=== PATIENT | female | born 1985 | race Caucasian/White ===

== ENCOUNTER 2021-06-17 00:03 | Emergency (ER) | payer SELFPAY ==
[2021-06-17] MEDS ORDERED: Diphtheria,Pertussis(Acell),Tetanus Vaccine 0.5 ML Syringe IM ONE (00:10)
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
[2021-06-17] MEDS: Bacitracin Oint 1 GM U/D Packet ONE ×2 (00:44→00:45)
[2021-06-17] MEDS ORDERED: Bacitracin Oint 1 GM U/D Packet TOP ONE (00:44)
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
[2021-06-17] MEDS ORDERED: Bacitracin Oint 28.35 GM Tube TOP SCH (06:00)
== END 2021-06-17 01:15 | disposition home or self-care (01) ==
LOC: MW.ED 00:03
DX: S80.212A Abrasion, left knee, initial encounter (principal); S90.811A Abrasion, right foot, initial encounter; Z23 Encounter for immunization; Z88.0 Allergy status to penicillin; V86.59XA Driver of other special all-terrain or other off-road motor vehicle injured in nontraffic accident, initial encounter
CPT/HCPCS: 73590-26-LT; 73590-LT; 73630-26-LT; 73630-LT; 90471; 90715; 99284-25